=== PATIENT | female | born 1970 | race Caucasian/White ===

== ENCOUNTER 2023-10-02 15:23 | Emergency (ER) | payer MEDICAID, SELFPAY ==
--- NOTE | 2023-10-02 15:37 | ED_ITS ---
HPI - Animal Bite General Chief Complaint: Animal Bite Stated Complaint: cat bite Time Seen by Provider: 10/02/23 15:36 Source: patient Mode of arrival: ambulatory Limitations: no limitations History of Present Illness HPI narrative: Yola is a 53-year-old female patient presenting to the clinic today with complaints of a cat bite to her right lower leg and to the right palm and thumb. 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 Related Data Allergies Allergy/AdvReac Type Severity Reaction Status Date / Time No Known Allergies Allergy Verified 10/02/23 15:51 Review of Systems Review of Systems: Pertinent positives per HPI. Patient denies any fever, chills, rash, headache, visual changes, dizziness, cough, runny nose, sore throat, shortness of breath, chest pain, palpitations, nausea, vomiting, diarrhea, constipation, abdominal pain, or any urinary issues. PMFSH Comments At the time of my signature, I reviewed and agree with the nursing past medical, surgical, social, and family history. There is no relevant family history pertinent to the patient complaint. Exam Narrative: General: Well-developed, well nourished, in no apparent distress Head: Normocephalic, atraumatic. Cardio: Regular rate and rhythm, s1 and s2 normal, no murmur appreciated. Resp: Clear to auscultation bilaterally, no rhonchi, rales, wheezing or rubs. Integumentary: [place], warm, and dry, puncture wound to the left upper palm just below 5th phalanx, puncture wound to the distal right volar thumb, cat scratches with 2 bites to the right lower lateral leg Course Course Emergency Course: Portions of this record may have been created with voice recognition software. Level of Care: Express Care Visit Vital Signs Vital signs: Vital signs reviewed MDM - Animal Bite MDM Narrative Medical decision making narrative: At the time of visit patient is resting comfortably on the exam table. Patient appears to be nontoxic. Plan: I suspect patient has multiple cat scratch to the right leg with cat bites. Prescription for Augmentin was sent to the pharmacy. Supportive measures were discussed with the patient and they voiced understanding discharge instructions and agrees to treatment plan. Return precautions reviewed Differential Diagnosis Differential diagnosis: Likely bite by animal and cat bite Discharge Plan Discharge Clinical Impression: Cat bite Qualifiers: Encounter type: initial encounter Qualified Code(s): W55.01XA - Bitten by cat, initial encounter Patient Disposition: Home, Self-Care Condition: Stable Instructions: Antibiotic Form, Animal Bite (ED) Additional Instructions: Increase fluids and stay well hydrated Take antibiotics as prescribed Wash area with soap and water daily May apply triple antibiotic ointment to the wound twice daily Follow-up with your and 1 week if symptoms persist or sooner if they worsen Prescriptions: New amoxicillin-pot clavulanate 875-125 mg tablet 1 tablet PO Q12H 7 Days Qty: 14 0RF Follow-up/Referrals: PHYSICIAN,DIRECTOR OF DONOR RELATIONS [Primary Care Provider] - Time of Disposition: 16:06 Quality NIHSS Nursing Documentation ED NIHSS nursing documentation: reviewed/agree
[2023-10-02 15:50] VITALS: BP 140/93; PULSE 78; RESP 18; TEMP 36.6; O2SAT 98
[2023-10-02 15:52] VITALS: BP 140/93; PULSE 78; RESP 18; TEMP 36.6; O2SAT 98
== END 2023-10-02 16:10 | disposition home or self-care (01) ==
PROVIDERS: Emergency Provider Nurse Practitioner Family
DX: S61.432A Puncture wound without foreign body of left hand, initial encounter (principal); S61.031A Puncture wound without foreign body of right thumb without damage to nail, initial encounter; W55.01XA Bitten by cat, initial encounter; S81.851A Open bite, right lower leg, initial encounter; I10 Essential (primary) hypertension; Z98.84 Bariatric surgery status
CPT/HCPCS: 99213; G0463